=== PATIENT | female | born 1970 | race African-American/Black ===

== ENCOUNTER 2016-11-30 23:06 | Inpatient (IN) | payer BC, OTHER ==
[~2016-11-30] VITALS: Ht 170.2 cm; Wt 86.2 kg
--- NOTE | ~2016-11-30 | EKG ---
[address] [place] [address] ELECTROCARDIOGRAM REPORT Name: REANICOLE HILLKIARA Kelly Room #: 417-I [facility] [place] .R.#: [id number] Admission: 12/01/16 Attend Phys: Vikram Stevens Discharge: 12/01/16 Date of : 72 Report #: [id number] THIS REPORT FOR: //name// [facility] ED Test Date: 2016-11-30 Test Time: 23:10:05 Pat Name: LEN REA Department: Room: [facility] Gender: F Client Relations Associate: JAMMIE : 1970 Requested By: Regina Renee Order Number: [id number] MD: Sergio Augustin Measurements Intervals [place] Rate: 85 P: 55 WV: 187 QRS: 58 QRSD: 95 T: 34 QT: 385 QTc: 458 Interpretive Statements Sinus rhythm No significant abnormality No previous ECG available for comparison Electronically Signed On 12-02-2016 9:00:55 CDT by Sergio Augustin [email or web address] <ELECTRONICALLY SIGNED> By: Sergio Augustin MD, [facility] 12/02/16 0900 231 2310 Sregio Augustin MD, FACC /EPI
[2016-11-30 23:07] VITALS: BP 132/66
[2016-11-30 23:38] LABS: BASOPHILS 0.9 % (0.0-2.0); EOSINOPHILS 2.8 % (0.0-3.0); HEMATOCRIT 41.3 % (37.0-47.0); HEMOGLOBIN 14.7 gm/dL (12.0-15.0); LYMPHOCYTES 59.1 % (24.0-44.0); MCH 31.6 pg (26.0-34.0); MCHC 35.5 g/dL (28.0-37.0); MCV 88.9 fL (80.0-100.0); MONOCYTES 11.8 % (1.0-8.0); PLATELET COUNT 175 thou/uL (150-400); POLYS 25.4 % (36.0-66.0); RBC 4.65 mil/uL (4.20-5.00); RDW 13.4 % (10.5-14.5); WBC 3.9 thou/uL (4.0-11.0)
[2016-11-30 23:41] LABS: MANUAL DIFF NO
[2016-11-30 23:52] LABS: ANION GAP 12 mmol/L (7-16); BUN 10 mg/dL (7-18); CALCIUM 9.8 mg/dL (8.5-10.1); CHLORIDE 101 mmol/L (98-107); CO2 24 mmol/L (21-32); GLUCOSE 115 mg/dL (74-106); SODIUM 137 mmol/L (136-145); TROPONIN-I < 0.04 ng/mL (<0.04-0.07)
[2016-11-30] MEDS ORDERED: PROMS25 WY RECTAL (23:56)
[2016-11-30] MEDS ORDERED: PHENERGAN 25 MG25 M1 PO (23:56)
[2016-11-30 23:58] LABS: LARGE PLATELETS FEW
[2016-12-01 01:36] VITALS: BP 135/83
[2016-12-01 01:50] VITALS: BP 136/78
[2016-12-01 02:50] VITALS: BP 118/79
[2016-12-01] MEDS ORDERED: COZAAR 25 MG TA25 M1 PO (03:21)
[2016-12-01] MEDS ORDERED: HYZAAR 100-12.1 EACH PO (03:22)
[2016-12-01] MEDS ORDERED: BUSPIRONE HCL5 MG PO (03:26)
[2016-12-01 04:01] VITALS: BP 118/80
[2016-12-01 05:20] LABS: ANION GAP 5 mmol/L (7-16); BUN 9 mg/dL (7-18); CALCIUM 9.5 mg/dL (8.5-10.1); CHLORIDE 106 mmol/L (98-107); CO2 29 mmol/L (21-32); CREATININE 0.9 mg/dL (0.6-1.0); GLUCOSE 97 mg/dL (74-106); SODIUM 140 mmol/L (136-145); TROPONIN-I < 0.04 ng/mL (<0.04-0.07)
[2016-12-01 05:23] LABS: POTASSIUM 4.1 mmol/L (3.5-5.1)
== END 2016-12-01 06:27 | disposition left against medical advice (07) | DRG 312 ==
LOC: ER 23:06 → EROBS 12-01 00:58 → 4E 12-01 01:56
PROVIDERS: Emergency Medicine; Nurse Practitioner Acute Care
DX: R55 Syncope and collapse (principal); F41.9 Anxiety disorder, unspecified; I10 Essential (primary) hypertension; E87.6 Hypokalemia; Z53.21 Procedure and treatment not carried out due to patient leaving prior to being seen by health care provider; Z83.3 Family history of diabetes mellitus; Z82.49 Family history of ischemic heart disease and other diseases of the circulatory system; Z80.0 Family history of malignant neoplasm of digestive organs
CPT/HCPCS: 10183